=== PATIENT | female | born 1960 | race African-American/Black ===

== ENCOUNTER 2018-02-06 14:14 | Observation (INO) | payer MEDICARE, MEDICAID ==
[2018-02-06 14:49] LABS: Hemoglobin 5.9 g/dL (12.0-16.0); Mean Corpuscular HGB CONC 28.9 g/dL (32.0-36.0); Mean Corpuscular Hemoglobin 18.4 pg (27.0-31.0); Mean Corpuscular Volume 63.9 fL (78.0-98.0); Platelet Count 312 thou/uL (130-400); RBC Distribution Width 16.5 % (11.5-14.5); Red Blood Cell (RBC) Count 3.18 mill/uL (4.20-5.40); White Blood Cell (WBC) Count 5.1 thou/uL (4.8-10.8)
[2018-02-06 15:04] LABS: #Basophils 0.1 thou/uL (0.0-0.2); #Eosinphils 0.3 thou/uL (0.0-0.7); #Lymphocytes 1.4 thou/uL (1.20-3.40); #Monocytes 0.7 thou/uL (0.11-0.59); #Neutrophils 2.6 thou/uL (1.40-6.50); %Basophils 2.3 % (0.0-1.0); %Eosinophils 5.7 % (0.0-10.0); %Lymphocytes 26.6 % (21.0-51.0); %Monocytes 14.5 % (0.0-10.0); %Neutrophils 50.9 % (42.0-75.0); Anisocytosis SLIGHT = 6-15 cells (100X) (0-5/hpf); Hypochromia SLIGHT = 6-15 cells (100X) (0-5/hpf); MDiff Complete? YES; Microcytosis SLIGHT = 6-15 cells (100X) (0-5/hpf); Ovalocytes SLIGHT = 2-5 cells (100X) (0-1/hpf); PLT Morphology Comment Appears Adequate
[2018-02-06 15:11] LABS: ALT (SGPT) 9 U/L (8-55); AST (SGOT) 12 U/L (5-34); Albumin 3.9 g/dL (3.5-5.0); Alkaline Phosphatase 77 U/L (40-150); Anion Gap 13 mmol/L (10-20); BUN (Urea Nitrogen) 22 mg/dL (9.8-20.1); Bilirubin, Total 0.3 mg/dL (0.2-1.2); Calc. Creatinine Clearance 0 mL/min (70-130); Calcium 9.2 mg/dL (7.8-10.44); Carbon Dioxide 24 mmol/L (22-29); Chloride 110 mmol/L (98-107); Estimated GFR-MDRD 78; Globulin 4.1 g/dL (2.4-3.5); Glucose 99 mg/dL (70-105); Sodium 143 mmol/L (136-145)
[2018-02-06 15:16] LABS: PTT 28.6 SEC (22.9-36.1); Prothrombin Time 13.3 SEC (12.0-14.7)
--- NOTE | 2018-02-06 16:11 | PDOC.FPRHP ---
- History of Present Illness Chief Complaint: Fatigue, weakness History of Present Illness: Date: 02/06/18 Time of Exam: 15:33 57 year old with a past medical history of cerebral palsy, HTN , and GERD who was sent to the ED by her PCP due to a hemoglobin of 5.4 that was collected earlier this week. The patient and her sister report she has been feeling fatigue and has been having generalized weakness recently. Her sister reports she has had melanotic stools. No abdominal pain, nausea, vomiting , or hematochezia. ED Course: Seen by Dr. Harrington. 2 units PRBC ordered - Allergies/Adverse Reactions Allergies Allergy/AdvReac Type Severity Reaction Status Date / Time No Known Allergies Allergy Unverified 02/06/18 16:12 - Home Medications Medication Instructions Recorded Confirmed Type Alendronate Sodium [Fosamax] 70 mg PO Q7D 02/06/18 02/06/18 History Amlodipine Besylate [amLODIPine 2.5 mg PO DAILY 02/06/18 02/06/18 History Besylate] Ascorbic Acid [Vitamin C] 1,000 mg PO DAILY 02/06/18 02/06/18 History Atorvastatin Calcium [Lipitor] 40 mg PO HS 02/06/18 02/06/18 History Docusate [Colace] 100 mg PO BID PRN 02/06/18 02/06/18 History Esomeprazole Magnesium [Nexium] 40 mg PO QAM-WM 02/06/18 02/06/18 History Fluticasone Propionate [Flonase 1 spray EA NARE DAILY 02/06/18 02/06/18 History Nasal [place]] Metoprolol Tartrate 50 mg PO BID 02/06/18 02/06/18 History Nystatin [Nystatin Powder] 1 applic TOP BID 02/06/18 02/06/18 History - History PMHx: Hemiplegic cerebral palsy, HTN, osteoporosis, GERD, allergic rhinitis PSHx: Colonoscopy 05/28/15 - tubular adenoma, bilateral inguinal hernia repair[facility] FHx:No family history of colon cancer. CHD <65 yo - mother, breast CA - mother Social:Lives with sister. No tobacco, alcohol, or drug use. - Review of Systems General: reports: fatigue. denies: fever/chills, weight/appetite/sleep changes Eyes: denies: eye pain, vision changes ENT: denies: nasal congestion, rhinorrhea Respiratory: denies: cough, congestion, shortness of breath, exercise intolerance Cardiovascular: denies: chest pain, palpitation, edema, paroxysmal nocturnal dyspnea, orthopnea Gastrointestinal: reports: constipation, other (Mother). denies: nausea, vomiting, diarrhea, abdominal pain, GI bleeding Genitourinary: denies: incontinence, dysuria, polyuria, discharge Skin: denies: rashes, lesions, jaundice, itching Musculoskeletal: denies: pain, tenderness, stiffness, swelling, arthritis/ arthralgias Neurological: denies: numbness, syncope, seizure, weakness Psychological: denies: anxiety, depression - Vital signs BP: [] HR: [] RR: [] Tmax: [] Pox: []% on [] Wt: [] - Physical Exam Constitutional: NAD, awake, alert and oriented, well developed HEENT: normocephalic and atraumatic, PERRLA, conjunctiva clear, no scleral icterus, grossly normal vision, TM's clear and intact, grossly normal hearing, normal nasal mucosa, MMM, oropharynx clear, good dention Neck: supple, FROM, trachea midline, no LAD, no JVD, no thyromegaly Chest: no-tender to palpation, no lesions Heart: normal S1/S2, no murmurs/rubs/gallops, pulses present, no edema Lungs: CTAB, no respiratory distress, good air movement, no rales/rhonchi, no wheezing, no retractions Abdomen: non-tender, bowel sounds present, no hernias -Abdomen: Firm mid-abdominal mass. Nontender Musculoskeletal: normal structure, normal tone, ROM grossly normal Neurological: no focal deficit, normal sensation, DTRs 2+ Skin: no rash/lesions, good turgor, capillary refill <2 seconds, no jaundice Heme/Lymphatic: no unusual bruising or bleeding, no purpura, no petechia, no LAD Psychiatric: normal mood and affect, good judgment and insight, intact recent and remote memory FMR H&P: Results - Labs Result Diagrams: 02/06/18 14:28 02/06/18 14:28 Lab results: WBC 5.1 thou/uL (4.8-10.8) 02/06/18 14:28 Hgb 5.9 g/dL (12.0-16.0) L* 02/06/18 14:28 Hct 20.3 % (36.0-47.0) L 02/06/18 14:28 MCV 63.9 fL (78.0-98.0) L 02/06/18 14:28 Plt Count 312 thou/uL (130-400) 02/06/18 14:28 Neutrophils % 50.9 % (42.0-75.0) 02/06/18 14:28 Sodium 143 mmol/L (136-145) 02/06/18 14:28 Potassium 4.0 mmol/L (3.5-5.1) 02/06/18 14:28 Chloride 110 mmol/L (98-107) H 02/06/18 14:28 Carbon Dioxide 24 mmol/L (22-29) 02/06/18 14:28 BUN 22 mg/dL (9.8-20.1) H 02/06/18 14:28 Creatinine 0.90 mg/dL (0.6-1.1) 02/06/18 14:28 Glucose 99 mg/dL (70-105) 02/06/18 14:28 Calcium 9.2 mg/dL (7.8-10.44) 02/06/18 14:28 Total Bilirubin 0.3 mg/dL (0.2-1.2) 02/06/18 14:28 AST 12 U/L (5-34) 02/06/18 14:28 ALT 9 U/L (8-55) 02/06/18 14:28 Alkaline Phosphatase 77 U/L (40-150) 02/06/18 14:28 Serum Total Protein 8.0 g/dL (6.0-8.3) 02/06/18 14:28 Albumin 3.9 g/dL (3.5-5.0) 02/06/18 14:28 FMR H&P: A/P - Problem List (1) Microcytic anemia Current Visit: Yes Status: Acute Priority: High Code(s): D50.9 - IRON DEFICIENCY ANEMIA, UNSPECIFIED Assessment and Plan: Place in observation in medical unit - Symptomatic but in no distress. Vitals stable. Likely chronic anemia - Transfuse 2 units PRBC - GI consulted - Dr. Aguila - Check serum iron studies and reticulocyte count - Clear liquid diet. NPO at midnight (2) Central abdominal mass Current Visit: Yes Status: Acute Code(s): R19.09 - OTHER INTRA-ABDOMINAL AND PELVIC SWELLING, MASS AND LUMP Assessment and Plan: Ultrasound ordered. May be retained feces. (3) Hypertension Current Visit: Yes Status: Chronic Priority: Medium Code(s): I10 - ESSENTIAL (PRIMARY) HYPERTENSION Qualifiers: Hypertension type: essential hypertension Qualified Code(s): I10 - Essential (primary) hypertension Assessment and Plan: Continue home meds (4) GERD (gastroesophageal reflux disease) Current Visit: Yes Status: Chronic Priority: Medium Code(s): K21.9 - GASTRO-ESOPHAGEAL REFLUX DISEASE WITHOUT ESOPHAGITIS Qualifiers: Esophagitis presence: esophagitis presence not specified Qualified Code(s) : K21.9 - Gastro-esophageal reflux disease without esophagitis Assessment and Plan: Protonix 40 mg. (5) Osteoporosis Current Visit: Yes Status: Chronic Code(s): M81.0 - AGE-RELATED OSTEOPOROSIS W/O CURRENT PATHOLOGICAL FRACTURE Qualifiers: Osteoporosis type: unspecified Presence of current pathological fracture: without current pathological fracture Qualified Code(s): M81.0 - Age-related osteoporosis without current pathological fracture Assessment and Plan: Home Fosamax (6) HLD (hyperlipidemia) Current Visit: Yes Status: Chronic Priority: Low Code(s): E78.5 - HYPERLIPIDEMIA, UNSPECIFIED Qualifiers: Hyperlipidemia type: unspecified Qualified Code(s): E78.5 - Hyperlipidemia , unspecified Assessment and Plan: Home statin (7) Allergic rhinitis Current Visit: Yes Status: Chronic Code(s): J30.9 - ALLERGIC RHINITIS, UNSPECIFIED Qualifiers: Allergic rhinitis trigger: unspecified Allergic rhinitis seasonality: unspecified seasonality Qualified Code(s): J30.9 - Allergic rhinitis, unspecified Assessment and Plan: Home Flonase restarted (8) Cerebral palsy, infantile hemiplegia Current Visit: Yes Status: Chronic Code(s): G80.8 - OTHER CEREBRAL PALSY FMR H&P: Upper Level - Plan Date/Time: 02/06/18 2475 I, [], have evaluated this patient and agree with findings/plan as outlined by software developer intern resident. Pertinent changes/additions are listed here.
[2018-02-06] MEDS ORDERED: Ondansetron ODT 4 MG TAB PO PRN (18:23)
[2018-02-06] MEDS ORDERED: Docusate 100 MG CAP PO PRN (18:23)
[2018-02-06 18:44] LABS: Reticulocyte Count 2.3 % (0.5-1.5)
[2018-02-06 18:51] LABS: Iron 15 ug/dL (50-170); Iron Binding Capacity, Total 460 mcg/dL (265-497)
--- NOTE | 2018-02-06 19:31 | ULT ---
ULTRASOUND ABDOMEN: 02/06/18 HISTORY: Mid abdominal mass on physical exam. FINDINGS: The exam is limited due to patient's body habitus and bowel gas. The liver demonstrates homogeneous echotexture without focal mass or intrahepatic ductal dilatation. The spleen measures 8.3 cm in length. The pancreas, IVC and aorta are not satisfactorily visualized d ue to overlying bowel gas. No shadowing gallstones, gallbladder wall thickening or pericholecystic fl uid is seen. A small amount of sludge in the gallbladder. No hydronephrosis noted on either side. No free fluid is seen. IMPRESSION: Limited exam. Please see above. POS: DERRICK
[2018-02-06] MEDS: Metoprolol Tartrate 50 MG TAB PO SCH (20:56)
[2018-02-06] MEDS: Atorvastatin Calcium 40 MG TAB PO SCH (20:56)
[2018-02-07 04:32] VITALS: BMI 26.4
[2018-02-07 05:42] LABS: Mean Corpuscular HGB CONC 31.9 g/dL (32.0-36.0); Mean Corpuscular Hemoglobin 22.4 pg (27.0-31.0); Mean Corpuscular Volume 70.3 fL (78.0-98.0); Mean Platelet Volume 10.3 fL (7.4-10.4); Platelet Count 286 thou/uL (130-400); RBC Distribution Width 19.4 % (11.5-14.5); White Blood Cell (WBC) Count 6.5 thou/uL (4.8-10.8)
[2018-02-07 05:57] LABS: Anion Gap 11 mmol/L (10-20); BUN (Urea Nitrogen) 15 mg/dL (9.8-20.1); Calc. Creatinine Clearance 86 mL/min (70-130); Calcium 8.6 mg/dL (7.8-10.44); Carbon Dioxide 23 mmol/L (22-29); Chloride 111 mmol/L (98-107); Estimated GFR-MDRD Greater than 90; Glucose 74 mg/dL (70-105); Potassium 3.6 mmol/L (3.5-5.1); Sodium 141 mmol/L (136-145)
[2018-02-07 06:10] LABS: #Basophils 0.1 thou/uL (0.0-0.2); #Eosinphils 0.3 thou/uL (0.0-0.7); #Lymphocytes 1.6 thou/uL (1.20-3.40); #Monocytes 0.9 thou/uL (0.11-0.59); #Neutrophils 3.7 thou/uL (1.40-6.50); %Basophils 1.7 % (0.0-1.0); %Lymphocytes 24.3 % (21.0-51.0); %Monocytes 13.5 % (0.0-10.0); %Neutrophils 56.5 % (42.0-75.0); Anisocytosis SLIGHT = 6-15 cells (100X) (0-5/hpf); MDiff Complete? YES
--- NOTE | 2018-02-07 06:11 | PDOC.FM ---
- Subjective Subjective: Patient states she is doing very well this morning. Denies headache, dizziness, chest pain, dyspnea, abdominal pain, nausea, vomiting, and diarrhea. - Objective MAR Reviewed: Yes Vital Signs & Weight: Vital Signs (12 hours) Temp Pulse Pulse Resp BP BP Pulse Ox 02/07/18 04:18 98.1 F 75 16 129/77 97 02/07/18 00:00 97.9 F 60 17 115/70 97 02/06/18 23:05 97.9 F 60 17 115/70 97 02/06/18 20:40 97.9 F 76 16 127/64 100 02/06/18 20:25 98.4 F 88 16 138/72 97 02/06/18 20:24 98.4 F 88 16 138/72 98 02/06/18 19:10 98.4 F 83 14 135/75 97 02/06/18 18:23 98.4 F 88 16 Weight Weight 61.371 kg I&O: 02/05/18 02/06/18 02/07/18 06:59 06:59 06:59 Intake Total 350 Balance 350 Result Diagrams: 02/07/18 05:05 02/07/18 05:05 Phys Exam - Physical Examination Constitutional: NAD HEENT: moist MMs, sclera anicteric, oral pharynx no lesions Neck: no nodes, no JVD, supple, full ROM Respiratory: no wheezing, no rales, no rhonchi, clear to auscultation bilateral Cardiovascular: RRR, no significant murmur, no rub Gastrointestinal: soft, non-tender, no distention, positive bowel sounds Musculoskeletal: no edema, pulses present Neurological: non-focal, normal sensation, moves all 4 limbs Lymphatic: no nodes Psychiatric: normal affect, A&O x 3 Skin: no rash, normal turgor, cap refill <2 seconds Dx/Plan (1) Iron deficiency anemia Code(s): D50.9 - IRON DEFICIENCY ANEMIA, UNSPECIFIED Status: Acute Qualifiers: Iron deficiency anemia type: unspecified iron deficiency Qualified Code(s) : D50.9 - Iron deficiency anemia, unspecified Plan: Dietary vs GI blood loss. Vitals stable - do not suspect acute blood loss anemia. GI consulted - appreciate their recs. FOBT pending. Patient is NPO. Lactated ringer's started at maintenance rate to avoid volume depletion. (2) Central abdominal mass Code(s): R19.09 - OTHER INTRA-ABDOMINAL AND PELVIC SWELLING, MASS AND LUMP Status: Acute Plan: US limited due to body habitus and bowel gas. Will await GI recs. (3) Hypertension Code(s): I10 - ESSENTIAL (PRIMARY) HYPERTENSION Status: Chronic Qualifiers: Hypertension type: essential hypertension Qualified Code(s): I10 - Essential (primary) hypertension Plan: At goal. Continue current meds (4) GERD (gastroesophageal reflux disease) Code(s): K21.9 - GASTRO-ESOPHAGEAL REFLUX DISEASE WITHOUT ESOPHAGITIS Status: Chronic Qualifiers: Esophagitis presence: esophagitis presence not specified Qualified Code(s) : K21.9 - Gastro-esophageal reflux disease without esophagitis Plan: Continue Protonix (5) Osteoporosis Code(s): M81.0 - AGE-RELATED OSTEOPOROSIS W/O CURRENT PATHOLOGICAL FRACTURE Status: Chronic Qualifiers: Osteoporosis type: unspecified Presence of current pathological fracture: without current pathological fracture Qualified Code(s): M81.0 - Age-related osteoporosis without current pathological fracture Plan: Continue Fosamax (6) HLD (hyperlipidemia) Code(s): E78.5 - HYPERLIPIDEMIA, UNSPECIFIED Status: Chronic Qualifiers: Hyperlipidemia type: unspecified Qualified Code(s): E78.5 - Hyperlipidemia , unspecified Plan: Continue home statin (7) Allergic rhinitis Code(s): J30.9 - ALLERGIC RHINITIS, UNSPECIFIED Status: Chronic Qualifiers: Allergic rhinitis trigger: unspecified Allergic rhinitis seasonality: unspecified seasonality Qualified Code(s): J30.9 - Allergic rhinitis, unspecified Plan: Home Flonase (8) Cerebral palsy, infantile hemiplegia Code(s): G80.8 - OTHER CEREBRAL PALSY Status: Chronic (9) Microcytic anemia Code(s): D50.9 - IRON DEFICIENCY ANEMIA, UNSPECIFIED Status: Inactive
[2018-02-07] MEDS: Metoprolol Tartrate 50 MG TAB PO SCH ×2 (08:14→20:04)
[2018-02-07] MEDS: Fluticasone Propionate Nasal Spray 16 gm Bottle NASAL SCH (08:15)
[2018-02-07] MEDS: Ascorbic Acid 500 mg Chewable Tablet PO SCH (08:15)
[2018-02-07] MEDS: Amlodipine 5 MG TAB PO SCH ×2 (08:15→13:25)
[2018-02-07] MEDS: Lactated Ringer's 1,000 ML IV SCH ×2 (08:16→16:30)
[2018-02-07] MEDS ORDERED: PROPOFOL 200 MG/20 ML VIAL ONE (16:19)
[2018-02-07] MEDS ORDERED: Lidocaine 1% PF 5 ML VIAL ONE (16:19)
--- NOTE | 2018-02-07 16:22 | OP ---
DATE OF PROCEDURE: 02/07/2018 PREOPERATIVE DIAGNOSIS: A 57-year-old -[place] female with severe anemia and history of mo y stool sometime back. She also has a history of chronic acid reflux. The patient underwent esophag ogastroduodenoscopy. POSTOPERATIVE DIAGNOSES: 1. Small hiatus hernia. 2. Erosion within the hiatus hernia sac. 3. Otherwise, normal exam. OPERATIVE PROCEDURE: Esophagogastroduodenoscopy with biopsy. PROCEDURE NOTE: The patient was placed on her left lateral position and was given sedation by Anesth esia Department. A Pentax video gastroscope under direct vision was passed down the oropharynx, past the GE junction, into the stomach and subsequently into the descending duodenum. The esophageal muc lucinda appears normal throughout the esophagus. She has small hiatus hernia. There is a small linear e rosion seen very superficial hiatus hernia sac. The fundus, cardia, gastric body, gastric antrum, no pathology seen. The duodenal bulb, descending duodenum, no pathology seen. Because of recurrent mi crocytic anemia, random biopsy obtained of the descending duodenum to rule out celiac disease. The s tomach was decompressed and the scope removed. RECOMMENDATIONS: 1. Iron supplement. 2. Follow up H&H. 3. Plan for colonoscopy tomorrow if the EGD was basically negative.
--- NOTE | 2018-02-07 17:57 | ADD-HP ---
ADDENDUM Please see the note from Dr. Isaak Lynch for which I agree. The patient was seen and evaluated a nd discussed with the residents. HISTORY OF PRESENT ILLNESS: This is a 57-year-old -Spanish female with history of cerebral p alsy, hypertension, reflux, blood workup done this week and was noted hemoglobin of 5.4, so she was c alled in. Really asymptomatic. They state she has dark stools, but it sounds like she has dark stoo l all the time, not really big change, has chronic constipation, has reflux, that is well controlled on the Nexium, so she was kind of surprised by this, had a colonoscopy a couple of years ago, did brisa w some polyps, does not show any cancers before precancers as far as she knows. PAST MEDICAL HISTORY: All per the resident's history and physical for which I concur. PAST SURGICAL HISTORY: All per the resident's history and physical for which I concur. MEDICATIONS AT HOME: All per the resident's history and physical for which I concur. REVIEW OF SYSTEMS: All per the resident's history and physical for which I concur. SOCIAL HISTORY: All per the resident's history and physical for which I concur. PHYSICAL EXAMINATION: GENERAL: No apparent distress. HEENT: Significant for extremely pale conjunctivae. Moist mucosa. CHEST: Clear. CARDIAC: Regular rate and rhythm. I do not really appreciate a murmur. ABDOMEN: Significant for mid abdominal mass. EXTREMITIES: Weakened and just dystrophic from the cerebral palsy. LABORATORY DATA: Reviewed. Hemoglobin 5.9. The rest was fairly unremarkable. ASSESSMENT AND PLAN: 1. Gastrointestinal bleed likely. We will get GI involved and needs to be scoped. 2. Abdominal mass. We will get an ultrasound, may eventually get a CT. 3. Hypertension. Continue her on current medicines. 4. Reflux. Continue Nexium. 5. Osteoporosis. Hold off on the Fosamax, potential of esophageal irritation or bleed.
--- NOTE | 2018-02-07 18:25 | ADD-PRG ---
DATE OF SERVICE: 02/07/[address] Please see note [address]. Isaak Lynch for which I agree. The patient was seen, evaluated and exam ined with the residents (00:22) hemoglobin is now up to 9 after a couple units of blood and is c urrently going to get the scope to figure out where she is bleeding from. No other issues or anythin g new. She is continued on proton pump inhibitor and we will see what the scope shows and to guide u s as far as the next step. Otherwise, continue his same home medicines.
--- NOTE | 2018-02-07 18:31 | CON ---
DATE OF CONSULTATION: 02/06/2018 REFERRING PHYSICIAN: Dr. Isaak Lynch-Dr. Geiger, [facility]. REASON FOR CONSULTATION: Severe symptomatic anemia. HISTORY OF PRESENT ILLNESS: Ms. Tila Schulte is a very pleasant, 57-year-old, -[place] femal e, who has history of cerebral palsy, hypertension, chronic acid reflux. The patient does see Dr. Ra phyllis Webb on a regular basis. The patient had seen her primary doctor recently and had a CBC done. Saba ferguson was found to have anemia. Note the patient's hemoglobin of 5.4. She was sent to the ER because of anemia. The patient is seen in the room along with the patient's sister. The patient gives very go od history. She is awake, alert, and communicative. She denies abdominal pain, nausea, vomiting. H er bowel movements maybe once a week and stools looked always dark. She tells me she had anemia a ye ar ago and was treated with iron supplement, the anemia got corrected. The patient's sister tells me that she has seen some dark stools off and on. She has stooled once a week and stools are always da rk. The patient has had no hematochezia. Over the last several weeks, she has been feeling kind of tired and fatigued and reported had poor energy. The patient tells me she had a colonoscopy at least 3 times in the [facility], recently they took some polyps out. Last colonoscopy was in 2016. There is no family history of colon cancer. She has no other relevant history. ALLERGIES: None. SOCIAL HISTORY: The patient has cerebral palsy. She does not smoke or drink alcohol. MEDICAL ILLNESSES: 1. Hypertension. 2. Cerebral palsy. 3. Chronic acid reflux. 4. Hyperlipidemia. 5. Allergic rhinitis. 6. Osteoporosis. SURGERIES: She had surgery on both legs from orthopedic surgery. FAMILY HISTORY: Mother and grandmother with breast cancer. Father, lung cancer. Mother, heart dise ase. MEDICATIONS: List reviewed, which include Fosamax, amlodipine, vitamin C, atorvastatin. She is also on esomeprazole, fluticasone nasal spray, metoprolol. REVIEW OF SYSTEMS: Constitutional: No history of fever, no weight loss, has been feeling tired and fatigued recently. Central nervous system: No history of any chronic headache, no syncope, and no s eizure disorder. Respiratory system: No history of chronic cough, hemoptysis, dyspnea. Cardiovascu lar system: No chest pain, no palpitation, no dyspnea, orthopnea or PND. Gastrointestinal: As in h istory of present illness. Genitourinary: No dysuria, hematuria. Musculoskeletal: Has history of osteoporosis. Neuropsychiatry: Unremarkable. PHYSICAL EXAMINATION: GENERAL: The patient is a very pleasant, -[place] female, who appears very comfortable. She is awake, alert, and communicative. VITAL SIGNS: Afebrile, temperature 98.3 degree Fahrenheit, pulse is 84, blood pressure is 154/72. HEENT: Conjunctivae clear. NECK: Supple. No adenitis or thyromegaly noted. CARDIOVASCULAR SYSTEM: First and second heart sounds normal. LUNGS: Clear to auscultation. ABDOMEN: Abdomen is soft. Abdomen is nondistended. Abdomen is nontender. No organomegaly or adebayo s. EXTREMITIES: She has scar over both anterior legs. No edema. LABORATORY DATA: Done today, CBC: WBC 5100, hemoglobin 5.9, hematocrit 20.3, MCV 35.9 indicative of iron deficiency and chronic anemia. Platelet count is , polymorphs 50, lymphocytes 22, monocyt es 14. Chemistry panel: Sodium 143, potassium 4, chloride 110, bicarbonate 24, BUN 22, creatinine 0 .90, glucose 99, calcium 9.2. Iron is 15, TIBC is 460, bilirubin 0.3. AST 12, ALT 9, alkaline phosp hatase 77. CLINICAL IMPRESSION: 1. A 57-year-old, -[place] female with anemia, which obviously is recurring. She tells me t hat she had anemia a year ago and was treated with . She has no history of rectal bleeding, but tells me that she has some dark stools off and on. The anemia is microcytic indicative of small blo od loss. She has had a colonoscopy at least 2 or 3 times and last one was in 2016. 2. Cerebral palsy. 3. Hypertension. 4. Chronic acid reflux. 5. Allergic rhinitis. PLAN: EGD tomorrow. If the EGD is negative, we have to consider repeat colonoscopy because of the m icrocytic anemia.
[2018-02-07] MEDS: Atorvastatin Calcium 40 MG TAB PO SCH (20:04)
[2018-02-08] MEDS: Lactated Ringer's 1,000 ML IV SCH ×2 (02:34→23:59)
[2018-02-08] MEDS ORDERED: GoLYTELY 4,000 ml Bottle PO SCH (06:00)
[2018-02-08] MEDS ORDERED: Alendronate Sodium 70 mg Tablet PO SCH (06:00)
[2018-02-08 07:00] LABS: Anion Gap 11 mmol/L (10-20); BUN (Urea Nitrogen) 8 mg/dL (9.8-20.1); Calc. Creatinine Clearance 83 mL/min (70-130); Calcium 8.6 mg/dL (7.8-10.44); Carbon Dioxide 25 mmol/L (22-29); Chloride 109 mmol/L (98-107); Estimated GFR-MDRD Greater than 90; Glucose 108 mg/dL (70-105); Potassium 3.8 mmol/L (3.5-5.1); Sodium 141 mmol/L (136-145)
[2018-02-08 08:02] LABS: #Basophils 0.1 thou/uL (0.0-0.2); #Eosinphils 0.3 thou/uL (0.0-0.7); #Lymphocytes 1.7 thou/uL (1.20-3.40); #Monocytes 0.9 thou/uL (0.11-0.59); #Neutrophils 4.5 thou/uL (1.40-6.50); %Eosinophils 3.6 % (0.0-10.0); %Lymphocytes 22.6 % (21.0-51.0); %Monocytes 12.4 % (0.0-10.0); %Neutrophils 60.3 % (42.0-75.0); Hemoglobin 8.9 g/dL (12.0-16.0); Hypochromia SLIGHT = 6-15 cells (100X) (0-5/hpf); MDiff Complete? YES; Mean Corpuscular HGB CONC 31.3 g/dL (32.0-36.0); Mean Corpuscular Hemoglobin 22.2 pg (27.0-31.0); Mean Corpuscular Volume 71.1 fL (78.0-98.0); Mean Platelet Volume 10.5 fL (7.4-10.4); Microcytosis MODERATE=15-30 cells (100X) (0-5/hpf); PLT Morphology Comment Appears Adequate; Platelet Count 272 thou/uL (130-400); Polychromasia MODERATE = 3-4 cells (100X) (0-2/hpf); Red Blood Cell (RBC) Count 3.99 mill/uL (4.20-5.40); White Blood Cell (WBC) Count 7.4 thou/uL (4.8-10.8)
--- NOTE | 2018-02-08 08:32 | PDOC.FM ---
- Subjective Subjective: Patient feels well this morning and has no specific complaints. There were no acute events over night. Pt denies any new symptoms to include cough, SOB, CP, dizziness - Objective MAR Reviewed: Yes Vital Signs & Weight: Vital Signs (12 hours) Temp Pulse Resp BP Pulse Ox 02/08/18 07:33 98.1 F 63 18 148/86 H 98 02/08/18 03:13 97.9 F 61 16 139/52 L 100 02/07/18 23:11 97.9 F 57 L 16 130/56 L 100 02/07/18 20:46 98.3 F 83 16 Weight Weight 61.371 kg I&O: 02/07/18 02/08/18 02/09/18 06:59 06:59 06:59 Intake Total 1310 1600 Output Total 550 Balance 760 1600 Result Diagrams: 02/08/18 06:35 02/08/18 06:35 <Vel Smallwood - Last Filed: 02/08/18 08:30> - Objective Vital Signs & Weight: Vital Signs (12 hours) Temp Pulse Resp BP Pulse Ox 02/08/18 09:13 63 02/08/18 07:33 98.1 F 63 18 148/86 H 98 02/08/18 03:13 97.9 F 61 16 139/52 L 100 02/07/18 23:11 97.9 F 57 L 16 130/56 L 100 Weight Weight 61.371 kg I&O: 02/07/18 02/08/18 02/09/18 06:59 06:59 06:59 Intake Total 1310 1600 Output Total 550 Balance 760 1600 Result Diagrams: 02/08/18 06:35 02/08/18 06:35 <Joesph Dixon - Last Filed: 02/08/18 10:58> Phys Exam - Physical Examination Constitutional: NAD HEENT: moist MMs, sclera anicteric Neck: no JVD, full ROM Respiratory: clear to auscultation bilateral Cardiovascular: RRR, no significant murmur Gastrointestinal: soft, non-tender, no distention, positive bowel sounds Musculoskeletal: no edema, pulses present Neurological: non-focal, moves all 4 limbs Psychiatric: normal affect, A&O x 3 Skin: no rash <Vel Smallwood - Last Filed: 02/08/18 08:30> Dx/Plan (1) Iron deficiency anemia Code(s): D50.9 - IRON DEFICIENCY ANEMIA, UNSPECIFIED Status: Acute QualifierTitle: Iron deficiency anemia type: unspecified iron deficiency Qualified Code(s): D50.9 - Iron deficiency anemia, unspecified (2) Central abdominal mass Code(s): R19.09 - OTHER INTRA-ABDOMINAL AND PELVIC SWELLING, MASS AND LUMP Status: Acute (3) Allergic rhinitis Code(s): J30.9 - ALLERGIC RHINITIS, UNSPECIFIED Status: Chronic QualifierTitle: Allergic rhinitis trigger: unspecified Allergic rhinitis seasonality: unspecified seasonality Qualified Code(s): J30.9 - Allergic rhinitis, unspecified (4) Cerebral palsy, infantile hemiplegia Code(s): G80.8 - OTHER CEREBRAL PALSY Status: Chronic (5) GERD (gastroesophageal reflux disease) Code(s): K21.9 - GASTRO-ESOPHAGEAL REFLUX DISEASE WITHOUT ESOPHAGITIS Status: Chronic QualifierTitle: Esophagitis presence: esophagitis presence not specified Qualified Code(s): K21.9 - Gastro-esophageal reflux disease without esophagitis (6) HLD (hyperlipidemia) Code(s): E78.5 - HYPERLIPIDEMIA, UNSPECIFIED Status: Chronic QualifierTitle: Hyperlipidemia type: unspecified Qualified Code(s): E78.5 - Hyperlipidemia, unspecified (7) Hypertension Code(s): I10 - ESSENTIAL (PRIMARY) HYPERTENSION Status: Chronic QualifierTitle: Hypertension type: essential hypertension Qualified Code( s): I10 - Essential (primary) hypertension (8) Osteoporosis Code(s): M81.0 - AGE-RELATED OSTEOPOROSIS W/O CURRENT PATHOLOGICAL FRACTURE Status: Chronic QualifierTitle: Osteoporosis type: unspecified Presence of current pathological fracture: without current pathological fracture Qualified Code(s) : M81.0 - Age-related osteoporosis without current pathological fracture (9) Microcytic anemia Code(s): D50.9 - IRON DEFICIENCY ANEMIA, UNSPECIFIED Status: Inactive - Plan Plan: Fe deficient anemia - Dietary vs GI blood loss, negative EGD yesterday. C scope today - Vitals and Hb stable. s/p 2 U PRBC - GI consulted - appreciate their recs. Biopsy taken during EGD to r/o celiac - FOBT pending Central abdominal mass - Poor study quality dt habitus and bowel gas - GI following HTN - controlled, continue home meds GERD - PPI Osteoporosis - Foxamax Allergic rhinitis - Flonase CP - Pt is wheelchair bound. Educated on use of incentive spirometer and the importance of its use Dispo: Stable. Awaiting further work up by GI. LOS likely 1-2 days <Vel Smallwood - Last Filed: 02/08/18 08:30> Attending Addendum - Attending Addendum Date/Time: 02/08/18 9144 I personally evaluated the patient and discussed the management with Dr. Smallwood I agree with the History, Examination, Assessment and Plan documented above with any addition or exceptions noted below.Patient s/p transfusion hemodynamically stable for colonoscopy today will evaluate questionable abdominal mass pending outcome endoscopy. Recommend IV iron dextran to replenish bone marrow iron stores given gravity of iron depletion. <Joesph Dixon - Last Filed: 02/08/18 10:58>
[2018-02-08] MEDS: Fluticasone Propionate Nasal Spray 16 gm Bottle NASAL SCH ×2 (09:00→12:04)
[2018-02-08] MEDS: Metoprolol Tartrate 50 MG TAB PO SCH ×2 (09:13→23:15)
[2018-02-08] MEDS: Amlodipine 5 MG TAB PO SCH (09:13)
[2018-02-08] MEDS: Ascorbic Acid 500 mg Chewable Tablet PO SCH (09:21)
[2018-02-08] MEDS ORDERED: IRON SUCROSE COMPLEX 100 MG/5 ML SLOW IVP SCH (11:00)
[2018-02-08] MEDS ORDERED: PROPOFOL 200 MG/20 ML VIAL ONE (12:24)
[2018-02-08] MEDS ORDERED: Lidocaine 1% PF 5 ML VIAL ONE (12:24)
[2018-02-08] MEDS ORDERED: Meperidine HCl/PF 25 MG/ML VIAL SLOW IVP PRN (22:27)
[2018-02-08] MEDS ORDERED: Ondansetron HCl/PF 4 MG/2 ML Vial IVP PRN (22:27)
[2018-02-08] MEDS ORDERED: Promethazine HCl 25 MG/ML VIAL SLOW IVP PRN (22:27)
[2018-02-08] MEDS ORDERED: Promethazine HCl 25 MG/ML VIAL IM PRN (22:27)
[2018-02-08] MEDS: Atorvastatin Calcium 40 MG TAB PO SCH (23:15)
[2018-02-08] MEDS: Sodium Ferric Gluconate 250 MG in Sodium Chloride 0.9% 100 ML IVPB SCH (23:15)
--- NOTE | 2018-02-09 01:13 | PRG ---
DATE OF SERVICE: 02/08/2018 TIME OF DICTATION: 09:15 p.m. This is a 57-year-old black female with anemia, who scheduled colonoscopy this afternoon. The origin al timing set was 06:00 p.m. The time is around 9:15 p.m. and still no progress made about what time this can be done. The patient n.p.o. all day long. We will plan to postpone colonoscopy until rohit rrow. She will be sent in a clear liquid diet and hopefully the colonoscopy done tomorrow morning.
[2018-02-09 04:47] LABS: #Basophils 0.1 thou/uL (0.0-0.2); #Eosinphils 0.2 thou/uL (0.0-0.7); #Lymphocytes 1.5 thou/uL (1.20-3.40); #Monocytes 0.9 thou/uL (0.11-0.59); #Neutrophils 5.4 thou/uL (1.40-6.50); %Basophils 0.8 % (0.0-1.0); %Eosinophils 2.1 % (0.0-10.0); %Lymphocytes 18.9 % (21.0-51.0); %Monocytes 11.4 % (0.0-10.0); %Neutrophils 66.8 % (42.0-75.0); Hemoglobin 8.1 g/dL (12.0-16.0); Mean Corpuscular HGB CONC 30.6 g/dL (32.0-36.0); Mean Corpuscular Hemoglobin 21.6 pg (27.0-31.0); Mean Corpuscular Volume 70.5 fL (78.0-98.0); Mean Platelet Volume 10.3 fL (7.4-10.4); Platelet Count 249 thou/uL (130-400); RBC Distribution Width 20.4 % (11.5-14.5); Red Blood Cell (RBC) Count 3.76 mill/uL (4.20-5.40)
[2018-02-09 05:09] LABS: Anion Gap 9 mmol/L (10-20); BUN (Urea Nitrogen) 7 mg/dL (9.8-20.1); Calc. Creatinine Clearance 85 mL/min (70-130); Calcium 8.2 mg/dL (7.8-10.44); Carbon Dioxide 27 mmol/L (22-29); Chloride 110 mmol/L (98-107); Estimated GFR-MDRD Greater than 90; Glucose 103 mg/dL (70-105); Potassium 3.1 mmol/L (3.5-5.1); Sodium 143 mmol/L (136-145)
[2018-02-09] MEDS: Lactated Ringer's 1,000 ML IV SCH ×2 (06:12→17:24)
[2018-02-09 07:12] LABS: Magnesium 1.7 mg/dL (1.6-2.6); Phosphorus 2.5 mg/dL (2.3-4.7)
--- NOTE | 2018-02-09 08:11 | OP ---
DATE OF SURGERY: 02/08/2018 OPERATIVE PROCEDURE: Colonoscopy. PREOPERATIVE DIAGNOSES: Symptomatic microcytic anemia, history of colon polyp. POSTOPERATIVE DIAGNOSIS: Normal colonoscopy. PROCEDURE NOTE: The patient was placed on her left lateral position and was given sedation by Anesth esia Department. A rectal exam was done and the scope was advanced into the rectum. No lesion felt on rectal exam. A Pentax video colonoscope was introduced into the rectum and advanced all the way t o the cecum. The prep was very good. The mucosa appeared normal. The appendiceal orifice, ileoceca l valve, cecum, no pathology seen. Withdrawal of scope in cecum, ascending colon, hepatic flexure, n o lesions seen. The transverse colon, splenic flexure, descending colon, sigmoid colon, no lesions s een. Retroflexion was normal. The colon was very redundant and tortuous. RECOMMENDATIONS: 1. Iron supplement. 2. Diet as tolerated. 3. Follow up H and H. 4. Repeat colonoscopy in 5 years.
--- NOTE | 2018-02-09 08:53 | PDOC.FM ---
- Subjective Subjective: 57 yo F s/p EGD and colonoscopy secondary to acute anemia work up. Pt doing well this morning and has no specific complaints. There were no acute events over night. - Objective Vital Signs & Weight: Vital Signs (12 hours) Temp Pulse Resp BP Pulse Ox 02/09/18 07:57 97.5 F L 59 L 16 146/71 H 97 02/09/18 04:31 98.2 F 54 L 12 109/63 97 02/09/18 04:00 98.2 F 54 L 12 109/63 97 02/08/18 23:00 98 F 74 18 02/08/18 22:47 98 F 74 18 151/73 H 100 Weight Weight 61.371 kg I&O: 02/08/18 02/09/18 02/10/18 06:59 06:59 06:59 Intake Total 1600 1600 Balance 1600 1600 Result Diagrams: 02/09/18 04:22 02/09/18 04:22 <Vel Smallwood - Last Filed: 02/09/18 08:51> - Objective Vital Signs & Weight: Vital Signs (12 hours) Temp Pulse Resp BP Pulse Ox 02/09/18 11:18 98.1 F 74 16 109/68 95 02/09/18 07:57 97.5 F L 59 L 16 146/71 H 97 02/09/18 04:31 98.2 F 54 L 12 109/63 97 02/09/18 04:00 98.2 F 54 L 12 109/63 97 Weight Weight 61.371 kg I&O: 02/08/18 02/09/18 02/10/18 06:59 06:59 06:59 Intake Total 1600 1600 Balance 1600 1600 Result Diagrams: 02/09/18 04:22 02/09/18 04:22 <Joesph Dixon - Last Filed: 02/09/18 11:30> Phys Exam - Physical Examination Constitutional: NAD HEENT: moist MMs, sclera anicteric Neck: full ROM Respiratory: clear to auscultation bilateral Cardiovascular: RRR, no significant murmur Gastrointestinal: soft, non-tender, no distention, positive bowel sounds possible mid abdominal mass on palpation Musculoskeletal: no edema, pulses present Neurological: non-focal baseline weakness of LE secondary to CP Psychiatric: normal affect, A&O x 3 Skin: no rash <Vel Smallwood Filed: 02/09/18 08:51> Dx/Plan (1) Iron deficiency anemia Code(s): D50.9 - IRON DEFICIENCY ANEMIA, UNSPECIFIED Status: Acute QualifierTitle: Iron deficiency anemia type: unspecified iron deficiency Qualified Code(s): D50.9 - Iron deficiency anemia, unspecified (2) Central abdominal mass Code(s): R19.09 - OTHER INTRA-ABDOMINAL AND PELVIC SWELLING, MASS AND LUMP Status: Acute (3) Allergic rhinitis Code(s): J30.9 - ALLERGIC RHINITIS, UNSPECIFIED Status: Chronic QualifierTitle: Allergic rhinitis trigger: unspecified Allergic rhinitis seasonality: unspecified seasonality Qualified Code(s): J30.9 - Allergic rhinitis, unspecified (4) Cerebral palsy, infantile hemiplegia Code(s): G80.8 - OTHER CEREBRAL PALSY Status: Chronic (5) GERD (gastroesophageal reflux disease) Code(s): K21.9 - GASTRO-ESOPHAGEAL REFLUX DISEASE WITHOUT ESOPHAGITIS Status: Chronic QualifierTitle: Esophagitis presence: esophagitis presence not specified Qualified Code(s): K21.9 - Gastro-esophageal reflux disease without esophagitis (6) HLD (hyperlipidemia) Code(s): E78.5 - HYPERLIPIDEMIA, UNSPECIFIED Status: Chronic QualifierTitle: Hyperlipidemia type: unspecified Qualified Code(s): E78.5 - Hyperlipidemia, unspecified (7) Hypertension Code(s): I10 - ESSENTIAL (PRIMARY) HYPERTENSION Status: Chronic QualifierTitle: Hypertension type: essential hypertension Qualified Code( s): I10 - Essential (primary) hypertension (8) Osteoporosis Code(s): M81.0 - AGE-RELATED OSTEOPOROSIS W/O CURRENT PATHOLOGICAL FRACTURE Status: Chronic QualifierTitle: Osteoporosis type: unspecified Presence of current pathological fracture: without current pathological fracture Qualified Code(s) : M81.0 - Age-related osteoporosis without current pathological fracture (9) Microcytic anemia Code(s): D50.9 - IRON DEFICIENCY ANEMIA, UNSPECIFIED Status: Inactive - Plan Plan: Fe deficient anemia - Dietary vs GI blood loss, negative EGD and C scope - Vitals are stable, however hb has dropped over night. This may be secondary to intraoperative fluids - Will discuss next steps with GI today, consider possible capsule endoscopy - GI consulted - appreciate their recs. Biopsy taken during EGD to r/o celiac - FOBT pending Central abdominal mass - Poor study quality dt habitus and bowel gas - Consider abdominal CT - GI following HTN - controlled, continue home meds GERD - PPI Osteoporosis - Foxamax Allergic rhinitis - Flonase CP - Pt is wheelchair bound. Educated on use of incentive spirometer and the importance of its use Dispo: Stable, continue to find source of bleeding and stabilize hb. Likely length of stay 1-2 days <Vel Smallwood - Last Filed: 02/09/18 08:51> Attending Addendum - Attending Addendum Date/Time: 02/09/18 2568 I personally evaluated the patient and discussed the management with Dr. Smallwood I agree with the History, Examination, Assessment and Plan documented above with any addition or exceptions noted below.Still lack definitive source of GI blood loss will proceed with abdominal CT and further studies for occult blood loss. <Joesph Dixon - Last Filed: 02/09/18 11:30>
[2018-02-09] MEDS: Metoprolol Tartrate 50 MG TAB PO SCH (09:10)
[2018-02-09] MEDS: Amlodipine 5 MG TAB PO SCH (09:10)
[2018-02-09] MEDS: Ascorbic Acid 500 mg Chewable Tablet PO SCH (09:10)
[2018-02-09] MEDS: Fluticasone Propionate Nasal Spray 16 gm Bottle NASAL SCH (09:15)
[2018-02-09] MEDS: Sodium Ferric Gluconate 250 MG in Sodium Chloride 0.9% 100 ML IVPB SCH (11:37)
[2018-02-09] MEDS ORDERED: ISOVUE-370 76%-LOCM 1 ML ONE (13:11)
[2018-02-09 15:46] VITALS: BP 139/88; TEMP 98.4
--- NOTE | 2018-02-09 16:40 | CT ---
ABDOMEN CT WITH CONTRAST PELVIC CT WITH CONTRAST 02/09/18 HISTORY: Evaluate for abdominal mass. COMPARISON: None. CORRELATION: Abdomen ultrasound 02/06/18. TECHNIQUE: Abdomen and pelvic CT are performed with IV and oral contrast. Coronal reformatted images are submitt ed for interpretation. FINDINGS: ABDOMEN CT: Scar and atelectasis in the lung bases. Small bilateral effusions. Heart size is normal. No pericardial effusion. The descending thoracic aorta and abdominal aorta are of normal caliber. No periaortic fat stranding. Portal vein is patent. The liver, spleen, pancreas, and adrenal glands have appropriate enhancement. There is CT evidence of cholelithiasis without evidence of cholecystitis. There is atrophy and scarring of the right kidney. Nonobstructing calcification in the lower pole of the right kidney measuring 0.5 cm. Right upper pole parapelvic cysts are suspected. Exophytic hypoden sity emanating from the left kidney with attenuation coefficient of 46 Hounsfield units. Evaluation i s incomplete. No gastrohepatic, retrocrural or periportal lymphadenopathy. No mesenteric mass, lymphadenopathy, free air or free fluid. Gastric mucosa is unremarkable. Multiple normal caliber small bowel loops. Ileocecal junction is norm al. Normal caliber appendix. Scattered fecal material in a nondistended, nondilated colon. No eviden ce of chronic obstruction. PELVIC CT: The uterus and adnexal structures are grossly unremarkable. No pelvic mass, lymphadenopathy, free air or free fluid. Decompressed urinary bladder with prominence of the urinary bladder mucosa. No lytic or blastic lesions in the osseous structures. There appears to be chronic dislocation of the left femur with respect to the acetabulum. IMPRESSION: 1. Chronic changes of the right kidney. 2. CT evidence of cholelithiasis without evidence of cholecystitis. 3. Nonspecific bowel gas pattern. 4. Mucosal prominence of the urinary bladder. Correlate clinically. 5. Exophytic hypodensity emanating from the mid pole left kidney which is not entirely consisten t with a simple cyst. Nonemergent renal mass protocol CT is recommended. POS: [facility]
[2018-02-09] MEDS ORDERED: Ferrous Sulfate 325 MG TAB PO SCH (17:00)
--- NOTE | 2018-02-10 15:12 | DIS-2 ---
DATE OF ADMISSION: 02/06/2018 DATE OF DISCHARGE: 02/09/2018 RESIDENT: Vel Smallwood DO ADMITTING ATTENDING: Tee Geiger M.D. DISCHARGE ATTENDING: Joesph Dixon MD CONSULTS: Dr. Aguila, Gastroenterology. PROCEDURES: EGD on 02/07/2018 and colonoscopy on 02/08/2018. A CT abdomen and pelvis on 02/09/2018, with findings of chronic changes to the right kidney. CT evidence of cholelithiasis without cholecystitis. Nonspecific bowel gas pattern. Mucosal prominence of the urinary bladder, exophytic hypodensity emanating from the mid pole of the left kidney, not entirely consistent with a simple cyst and recommendation of a renal mass protocol CT. DISCHARGE MEDICATIONS: Nystatin powder one application topical b.i.d., Lipitor 40 mg p.o. at bedtime, Colace 100 mg p.o. b.i.d., Fosamax 70 mg p.o. every 7 days, amlodipine 2.5 mg p.o. daily, metoprolol 50 mg p.o. b.i.d., Flonase 1 spray each naris daily, vitamin C 1000 mg p.o. daily, Nexium 40 mg p.o. q.a.m. with meals, ferrous sulfate 325 mg p.o. b.i.d., and VESIcare 10 mg 1 tab p.o. daily. DISCONTINUED MEDICATIONS: None. HOSPITAL COURSE: This is a 57-year-old female who was admitted from clinic as a direct admit secondary to an outpatient lab finding of hemoglobin of 5.4, also with a history of periodic dark stools otherwise asymptomatic while hospitalized. The patient received 2 units of packed red blood cells without complication. Hemoglobin recovered to 9.0 following the transfusion. This did trend down to 8.1; however, the patient remained asymptomatic and there was some question as to whether or not this was related dilution secondary to fluids received while getting both an EGD and colonsocpy. Both EGD and colonoscopy were essentially negative with the exception of on the EGD, found a small hiatal hernia and one erosion within the hiatal hernia sac. Throughout the hospitalization, there was concern for possible mass on physical exam. Therefore, a CT abdomen and pelvis was conducted, witch found a left kidney, exophytic type mass with a recommendation of a nonemergent renal mass protocol CT and this should be done in the outpatient setting. This is likely an incidental finding as this would not be a palpable mass. Otherwise, the patient' s vital signs have remained stable throughout the hospitalization. There is no concern for continued bleeding. After discussion with Dr. Aguila, it was decided that the patient was stable for discharge with follow up in 1-[address] Aguila. At that time, there will be consideration of doing a capsule endoscopy to evaluate the small bowel. Recommend the patient have a repeat H&H in 1-2 weeks. DISPOSITION: Stable. DISCHARGE INSTRUCTIONS: 1. Location: Home. 2. Diet: Regular. 3. Activity: Ad petr. 4. Followup: With Dr. Aguila in 1-[address] Webb in 1-2 weeks. BILL
--- NOTE | 2018-02-10 15:27 | PRG ---
DATE OF SERVICE: 02/09/2018 SUBJECTIVE: This is a 57-year-old -[place] female hospitalized for the weekend with severe m icrocytic anemia. The patient has a remote history of passing dark stool. She had an EGD done which revealed hiatal hernia and a small erosion of hiatal hernia sac. she had a colonoscopy yester day. The colonoscopy again showed no pathology except for hemorrhoids. The patient . PHYSICAL EXAMINATION: GENERAL: The patient appears comfortable. CARDIOVASCULAR SYSTEM: Within normal limits. ABDOMEN: Soft to palpate. No organomegaly. No tenderness. No mass. I did spoke with the primary care and advised to start the patient . The patient can come back to have capsule endoscopy. This will be arranged in the near future. In the meantime, agree with IZA Carvajal today.
== END 2018-02-09 18:35 | disposition home or self-care (01) ==
LOC: ERS 14:14 → 2SW 17:09 → SURG A 18:11
PROVIDERS: ADMIT Family Medicine; ATTEND Family Medicine
PROC: 0DB98ZX Excision of Duodenum, Via Natural or Artificial Opening Endoscopic, Diagnostic (ICD-10-PCS; principal; 2018-02-07)
PROC: 0DJD8ZZ Inspection of Lower Intestinal Tract, Via Natural or Artificial Opening Endoscopic (ICD-10-PCS; 2018-02-08)
DX: D50.9 Iron deficiency anemia, unspecified (principal); K44.9 Diaphragmatic hernia without obstruction or gangrene; K21.9 Gastro-esophageal reflux disease without esophagitis; I10 Essential (primary) hypertension; E78.5 Hyperlipidemia, unspecified; M81.0 Age-related osteoporosis without current pathological fracture; G80.9 Cerebral palsy, unspecified; J30.9 Allergic rhinitis, unspecified; R19.09 Other intra-abdominal and pelvic swelling, mass and lump; Z79.899 Other long term (current) drug therapy
CPT/HCPCS: 36430; 43239; 45378; 74177; 76700; 80048 ×3; 80053; 82728; 83540; 83550; 83735; 84100; 85025 ×4; 85046; 85610; 85730; 86850; 86900; 86901; 86920; 88305; 96361 ×2; 96365; 96366 ×2; 99285; G0378; P9016; 36415; 85060; J2001; J2704; J2916; J7050

== ENCOUNTER 2018-03-18 13:52 | Outpatient (CLI) | payer MEDICARE, MEDICAID | END 2018-03-18 13:53 | disposition home or self-care (01) | LOC: BICMAMMO 13:52 | PROVIDERS: ATTEND Family Medicine | DX: Z12.31 Encounter for screening mammogram for malignant neoplasm of breast (principal); Z80.3 Family history of malignant neoplasm of breast | CPT/HCPCS: 77063; 77067 ==

== ENCOUNTER 2018-03-19 09:38 | Outpatient (CLI) | payer MEDICARE, MEDICAID ==
[2018-03-19] MEDS ORDERED: Iopamidol 370 76% 100 ML VIAL ONE (11:54)
--- NOTE | 2018-03-19 14:46 | CT ---
CT ABDOMEN AND PELVIS WITH AND WITHOUT IV CONTRAST: Date: 03/19/18 HISTORY: Renal mass. FINDINGS: Comparison made with exam of 02/09/18. The 2.0 cm exophytic mass arising from the left renal cortex has attenuation values of 13 Hounsfield units on the noncontrasted study and 20 Hounsfield units on the postcontrast exam. This is consistent with a cyst. A tiny low density lesion adjacent to this within the left renal cortex is likely to re present a cyst. There are bilateral renal calculi. There is scarring in the right kidney. No enhancin g renal masses noted on either side. No hydroureteronephrosis is seen on either side. No calculi note d in the ureters or the urinary bladder. Calcified gallstones are again seen. The liver, pancreas, adrenal glands, and spleen appear normal. No free air, free fluid, or lymphadenopathy seen in the abdomen or pelvis. There is no evidence of an eurysmal dilatation of the abdominal aorta. Chronic dislocation of the left femur is again noted. A t iny right pleural effusion is present. Uterus is present. IMPRESSION: 1. Cholelithiasis. 2. Renal cysts. POS: [facility]
== END 2018-03-19 09:39 | disposition home or self-care (01) ==
LOC: CT 09:38
PROVIDERS: ATTEND Family Medicine
DX: N28.89 Other specified disorders of kidney and ureter (principal); N28.1 Cyst of kidney, acquired; K80.20 Calculus of gallbladder without cholecystitis without obstruction
CPT/HCPCS: 74178

== ENCOUNTER 2019-05-03 13:07 | Outpatient (CLI) | payer MEDICARE, MEDICAID ==
--- NOTE | 2019-05-03 14:43 | BD ---
BONE DENSITOMETRY: Date: 05/03/19 HISTORY: Postmenopausal screening. FINDINGS: Lumbar Spine: BMD (g/cm2) L1 0.888 T-Score: -0.9 L2 0.871 T-Score: -1.4 L3 0.851 T-Score: -2.1 L4 0.770 T-Score: -2.6 Total 0.842 T-Score: -1.9 Left Femoral Neck: 0.612 T-Score: -2.1 Total Femur: 0.755 T-Score: -1.5 IMPRESSION: Bone mineral density of the lumbar spine and femoral neck both indicate osteopenia. POS: OFF
--- NOTE | 2019-05-03 14:51 | MMO ---
Bilateral MAMMO Bilat Screen [facility]. CLINICAL HISTORY: Patient is 58 years old and is seen for screening. The patient has the following family history of breast cancer: mother, malignant (generic) and maternal grandmother, malignant (generic). The patient has no personal history of cancer. The patient has a history of right Excisional Biopsy in 1993 - benign. VIEWS: The views performed were: bilateral craniocaudal with tomosynthesis and bilateral mediolateral oblique with tomosynthesis. FILMS COMPARED: The present examination has been compared to prior imaging studies performed at [facility] on 09/27/2013, 05/04/2015, 02/27/2017 and 03/18/2018. This study has been interpreted with the assistance of computer-aided detection. MAMMOGRAM FINDINGS: The breasts are almost entirely fat. There are benign appearing densities with associated benign appearing calcifications seen in both breasts. There are no suspicious masses, suspicious calcifications, or new areas of architectural distortion. IMPRESSION: THERE IS NO MAMMOGRAPHIC EVIDENCE OF MALIGNANCY. A ROUTINE FOLLOW-UP MAMMOGRAM IN 1 YEAR IS RECOMMENDED. THE RESULTS OF THIS EXAM WERE SENT TO THE PATIENT. ACR BI-RADS Category 2 - Benign finding MAMMOGRAPHY NOTE: 1. A negative mammogram report should not delay a biopsy if a dominant of clinically suspicious mass is present. 2. Approximately 10% to 15% of breast cancers are not detected by mammography. 3. Adenosis and dense breasts may obscure an underlying neoplasm. Reported by: MONAE LEONARD MD Electonically Signed: [id number]
== END 2019-05-03 13:08 | disposition home or self-care (01) ==
LOC: BICMAMMO 13:07
PROVIDERS: ATTEND Family Medicine
DX: Z12.31 Encounter for screening mammogram for malignant neoplasm of breast (principal); M81.0 Age-related osteoporosis without current pathological fracture; M85.89 Other specified disorders of bone density and structure, multiple sites; Z91.89 Other specified personal risk factors, not elsewhere classified; Z80.3 Family history of malignant neoplasm of breast
CPT/HCPCS: 77063; 77067; 77080

== ENCOUNTER 2020-07-16 15:24 | Outpatient (CLI) | payer MEDICARE, MEDICAID ==
--- NOTE | 2020-07-16 16:04 | MMO ---
Bilateral MAMMO Bilat Screen [facility]. CLINICAL HISTORY: Patient is 60 years old and is seen for screening. The patient has the following family history of breast cancer: mother, malignant (generic) and maternal grandmother, malignant (generic). The patient has no personal history of cancer. The patient has a history of right Excisional Biopsy in 1993 - benign. VIEWS: The views performed were: bilateral craniocaudal with tomosynthesis and bilateral mediolateral oblique with tomosynthesis. FILMS COMPARED: The present examination has been compared to prior imaging studies performed at [facility] on 05/04/2015, 02/27/2017, 03/18/2018 and 05/03/2019. This study has been interpreted with the assistance of computer-aided detection. MAMMOGRAM FINDINGS: There are scattered fibroglandular densities. There are coarse popcorn-like calcifications seen in both breasts. There are no suspicious masses, suspicious calcifications, or new areas of architectural distortion. IMPRESSION: THERE IS NO MAMMOGRAPHIC EVIDENCE OF MALIGNANCY. A ROUTINE FOLLOW-UP MAMMOGRAM IN 1 YEAR IS RECOMMENDED. THE RESULTS OF THIS EXAM WERE SENT TO THE PATIENT. ACR BI-RADS Category 2 - Benign finding MAMMOGRAPHY NOTE: 1. A negative mammogram report should not delay a biopsy if a dominant of clinically suspicious mass is present. 2. Approximately 10% to 15% of breast cancers are not detected by mammography. 3. Adenosis and dense breasts may obscure an underlying neoplasm. Reported by: MONAE LEONARD MD Electonically Signed: [id number]
== END 2020-07-16 15:25 | disposition home or self-care (01) ==
LOC: BICMAMMO 15:24
PROVIDERS: ATTEND Family Medicine
DX: Z12.31 Encounter for screening mammogram for malignant neoplasm of breast (principal); Z91.89 Other specified personal risk factors, not elsewhere classified; Z80.3 Family history of malignant neoplasm of breast
CPT/HCPCS: 77063; 77067

== ENCOUNTER 2022-04-30 14:47 | Outpatient (CLI) | payer OTHER, MEDICAID | END 2022-04-30 14:48 | disposition home or self-care (01) | LOC: BICMAMMO 14:47 | PROVIDERS: ATTEND Family Medicine | DX: Z12.31 Encounter for screening mammogram for malignant neoplasm of breast (principal); Z91.89 Other specified personal risk factors, not elsewhere classified; Z80.3 Family history of malignant neoplasm of breast | CPT/HCPCS: 77063; 77067 ==

== ENCOUNTER 2023-02-19 10:40 | Outpatient (CLI) | payer OTHER, MEDICAID | END 2023-02-19 10:41 | disposition home or self-care (01) | LOC: BICMAMMO 10:40 | PROVIDERS: ATTEND Family Medicine | DX: M81.0 Age-related osteoporosis without current pathological fracture (principal); M85.89 Other specified disorders of bone density and structure, multiple sites | CPT/HCPCS: 77080 ==

== ENCOUNTER 2024-02-04 15:02 | Outpatient (CLI) | payer OTHER, MEDICAID | END 2024-02-04 15:03 | disposition home or self-care (01) | LOC: BICMAMMO 15:02 | PROVIDERS: ATTEND Family Medicine | DX: Z12.31 Encounter for screening mammogram for malignant neoplasm of breast (principal); Z80.3 Family history of malignant neoplasm of breast; Z91.89 Other specified personal risk factors, not elsewhere classified | CPT/HCPCS: 77063; 77067 ==